=== PATIENT | male | born 1965 | race Caucasian/White ===

== ENCOUNTER → 2020-08-17 | Outpatient (CLI) | payer OTHER ==
[~2020-08-17] MED LIST: ADALAT CC30 MG PO; ADMELOG SO100 UNIT/1 SQ; ASPIRIN EC81 MG PO; ATORVASTATIN CA20 MG PO; BASAGLAR K100 UNIT/1 SQ; BRILINTA 90 MG90 MG PO; CLOPIDOGREL75 MG PO; COREG 12.5MG12.5 MG PO; HUMALOG100 UNIT/3 SQ; IMDUR ER TAB 6060 MG PO; LIORESAL TAB 1010 MG PO; LOPRESSOR 25 MG25 MG PO; LORTAB 7.5-3251 EACH PO; NITROSTAT0.4 MG SL; PLAVIX 75 MG TA75 MG PO; PRAVASTATIN SOD40 MG PO; PROTONIX20 MG PO; RANEXA1000 MG PO; SPIRIVA RESPIMAT4 GM INH; TRAMADOL HCL50 MG PO; TRICOR145 MG PO; VENTOLIN HFA 66.7 GM INH; ZOLOFT100 MG PO
== END ==
LOC: EXRD 14:30
DX: R63.4 Abnormal weight loss (principal)
CPT/HCPCS: 71046

== ENCOUNTER → 2020-09-21 | Outpatient (CLI) | payer OTHER | LOC: HEART 5 08:51 | DX: R63.4 Abnormal weight loss (principal); R94.2 Abnormal results of pulmonary function studies | CPT/HCPCS: 94060; 94729 ==

== ENCOUNTER 2021-04-12 17:49 | Emergency (ER) | payer OTHER | END 2021-04-12 20:59 | disposition left against medical advice (07) | LOC: ER1 17:49 | DX: Z53.21 Procedure and treatment not carried out due to patient leaving prior to being seen by health care provider (principal) | CPT/HCPCS: 93005 ==

== ENCOUNTER → 2021-10-09 | Outpatient (CLI) | payer OTHER | LOC: KOH-I 16:28 → CT 16:30 | DX: S09.90XS Unspecified injury of head, sequela (principal) | CPT/HCPCS: 70450 ==

== ENCOUNTER 2021-12-27 15:58 | Inpatient (IN) | payer OTHER ==
[~2021-12-27] VITALS: Ht 165.1 cm; Wt 63.2 kg
[~2021-12-27 15:58] MED LIST changes: +BACLOFEN5 MG PO; -LIORESAL TAB 1010 MG PO
[2021-12-27 16:30] LABS: HEMOGLOBIN 17.1 gm/dl (14.0-17.5); RED BLOOD COUNT 4.96 M/UL (4.20-5.50)
[2021-12-27 17:00] LABS: BUN/CREATININE RATIO 16 (0-10)
[2021-12-28 02:27] LABS: HEMOGLOBIN 15.2 gm/dl (14.0-17.5)
[2021-12-28 02:34] LABS: RED BLOOD COUNT 4.4 M/UL (4.20-5.50); WHITE BLOOD COUNT 15.2 K/UL (4.5-11.0)
[2021-12-28 04:01] LABS: BUN/CREATININE RATIO 26 (0-10)
[2021-12-28] MEDS ORDERED: VRAYLAR1.5 MG PO (10:54)
[2021-12-28] MEDS ORDERED: LANTUS SOL100 UNIT/1 SQ (10:54)
[2021-12-28] MEDS ORDERED: VITAMIN D350 MCG PO (10:54)
[2021-12-28] MEDS ORDERED: PRAZOSIN HCL2 MG PO (10:54)
[2021-12-28] MEDS ORDERED: VITAMIN D21250 MCG PO (10:54)
[2021-12-28] MEDS ORDERED: FLOMAX 0.4 MG0.4 MG PO (10:55)
[2021-12-28] MEDS ORDERED: HUMALOG100 UNIT/3 SQ (10:55)
[2021-12-28] MEDS ORDERED: ZOCOR20 MG PO (10:55)
--- NOTE | 2021-12-29 14:00 | NUR ---
STATES PT ALLOWED TO GO OFF FLOOR TO [facility]
--- NOTE | 2021-12-30 08:46 | NUR ---
PT RETURNED TO FLOOR FROM [facility], TECH STATES PT UNABLE TO COMPLETE TEST R/T CLAUSTROPHOBIA.
[2021-12-31] MEDS ORDERED: LIPITOR40 MG PO (10:43)
[2021-12-31] MEDS ORDERED: LOPRESSOR 25 MG25 MG PO (10:43)
[2021-12-31] MEDS ORDERED: LISINOPRIL5 MG PO (10:43)
[2021-12-31] MEDS ORDERED: ASPIRIN EC81 MG PO (10:54)
== END 2021-12-31 11:28 | disposition home or self-care (01) | DRG 304 ==
LOC: ER1 15:58 → PROG CARE 20:34 → CDU 20:34 → PROG CARE 22:55
PROVIDERS: Nurse Practitioner; ADMIT Internal Medicine
PROC: B24BZZZ Ultrasonography of Heart with Aorta (ICD-10-PCS; principal; 2021-12-28)
DX: I16.1 Hypertensive emergency (principal); I46.2 Cardiac arrest due to underlying cardiac condition; F11.20 Opioid dependence, uncomplicated; Z20.822 Contact with and (suspected) exposure to COVID-19; R55 Syncope and collapse; R07.9 Chest pain, unspecified; I16.0 Hypertensive urgency; E11.9 Type 2 diabetes mellitus without complications; I25.10 Atherosclerotic heart disease of native coronary artery without angina pectoris; F19.10 Other psychoactive substance abuse, uncomplicated; E78.5 Hyperlipidemia, unspecified; J44.9 Chronic obstructive pulmonary disease, unspecified; F12.10 Cannabis abuse, uncomplicated; M19.90 Unspecified osteoarthritis, unspecified site; I10 Essential (primary) hypertension; I08.3 Combined rheumatic disorders of mitral, aortic and tricuspid valves; G89.29 Other chronic pain; F32.A Depression, unspecified; F17.210 Nicotine dependence, cigarettes, uncomplicated; Z95.5 Presence of coronary angioplasty implant and graft; Z88.0 Allergy status to penicillin; Z82.49 Family history of ischemic heart disease and other diseases of the circulatory system; Z83.3 Family history of diabetes mellitus; Z90.49 Acquired absence of other specified parts of digestive tract
CPT/HCPCS: ECHO; 36415; 36600; 70450; 71045; 72125; 80053; 80061; 80307; 81001; 82140; 82550; 82553; 82803; 82962; 83036; 83605; 83735; 84439; 84443; 84484; 85025; 85379; 85610; 85730; 87040; 93005; 93270; 93306; 96372; 96374; 96375; 99285; C9113; G0480; J2270; J2405; J3475; Q9967

== ENCOUNTER 2022-02-01 15:35 | Inpatient (IN) | payer OTHER ==
[~2022-02-01] VITALS: Ht 162.6 cm; Wt 61.2 kg
[~2022-02-01 15:35] MED LIST changes: +FLOMAX 0.4 MG0.4 MG PO; +LANTUS SOL100 UNIT/1 SQ; +LIPITOR40 MG PO; +LISINOPRIL5 MG PO; +PRAZOSIN HCL2 MG PO; +VITAMIN D21250 MCG PO; +VITAMIN D350 MCG PO; +VRAYLAR1.5 MG PO; +ZOCOR20 MG PO
[2022-02-01 16:03] LABS: HEMOGLOBIN 16.8 gm/dl (14.0-17.5); RED BLOOD COUNT 5.03 M/UL (4.20-5.50); WHITE BLOOD COUNT 10.2 K/UL (4.5-11.0)
[2022-02-01 17:09] LABS: BUN/CREATININE RATIO 26 (0-10)
[2022-02-02 03:41] LABS: HEMOGLOBIN 15.6 gm/dl (14.0-17.5); RED BLOOD COUNT 4.59 M/UL (4.20-5.50)
[2022-02-02 03:44] LABS: WHITE BLOOD COUNT 15.5 K/UL (4.5-11.0)
[2022-02-02 04:06] LABS: BUN/CREATININE RATIO 29 (0-10)
[2022-02-03 02:58] LABS: HEMOGLOBIN 15.5 gm/dl (14.0-17.5); RED BLOOD COUNT 4.59 M/UL (4.20-5.50)
[2022-02-03 03:00] LABS: WHITE BLOOD COUNT 9.7 K/UL (4.5-11.0)
[2022-02-03 03:19] LABS: BUN/CREATININE RATIO 29 (0-10)
[2022-02-04 06:24] LABS: HEMOGLOBIN 14.5 gm/dl (14.0-17.5); RED BLOOD COUNT 4.36 M/UL (4.20-5.50); WHITE BLOOD COUNT 9.4 K/UL (4.5-11.0)
[2022-02-04 07:15] LABS: BUN/CREATININE RATIO 31 (0-10)
--- NOTE | 2022-02-04 09:57 | NUR ---
NURSE CALLED REPORTED THAT PT WILL BE TRANSFERED TO [place] [address] ENID FOSTER MD, SOMEONE WILL CALL ME WHEN BED READY.
--- NOTE | 2022-02-05 03:38 | NUR ---
APPROX. [id number]: ATTEMPTED TO CALL REPORT TO [facility], [address]. RN UNABLE TO TAKE REPORT AT THIS TIME. WILL CALL BACK. APPROX. [id number]: CALLED REPORT TO [facility], [address]LO[address], TO PERRY TRAVIS. APPROX. [id number]: FAXED EMS. CALLED EMS TO NOTIFY THEM OF NEED FOR PICKUP.
== END 2022-02-05 04:00 | disposition short-term general hospital (02) | DRG 287 ==
LOC: ER1 15:35 → MED SURG 4 17:31 → CDU 17:31 → MED SURG 4 21:06
PROVIDERS: Emergency Medicine; Physician Assistant; ADMIT Internal Medicine
PROC: 4A023N7 Measurement of Cardiac Sampling and Pressure, Left Heart, Percutaneous Approach (ICD-10-PCS; principal; 2022-02-04)
PROC: B2151ZZ Fluoroscopy of Left Heart using Low Osmolar Contrast (ICD-10-PCS; 2022-02-04)
PROC: B2111ZZ Fluoroscopy of Multiple Coronary Arteries using Low Osmolar Contrast (ICD-10-PCS; 2022-02-04)
DX: I25.10 Atherosclerotic heart disease of native coronary artery without angina pectoris (principal); I10 Essential (primary) hypertension; Z20.822 Contact with and (suspected) exposure to COVID-19; F12.10 Cannabis abuse, uncomplicated; E11.9 Type 2 diabetes mellitus without complications; J44.9 Chronic obstructive pulmonary disease, unspecified; I16.0 Hypertensive urgency; H91.93 Unspecified hearing loss, bilateral; E78.5 Hyperlipidemia, unspecified; F17.210 Nicotine dependence, cigarettes, uncomplicated; Z79.4 Long term (current) use of insulin; Z79.01 Long term (current) use of anticoagulants; Z79.82 Long term (current) use of aspirin; Z95.5 Presence of coronary angioplasty implant and graft; Z90.49 Acquired absence of other specified parts of digestive tract; Z98.890 Other specified postprocedural states; Z88.1 Allergy status to other antibiotic agents; Z88.0 Allergy status to penicillin; Z88.8 Allergy status to other drugs, medicaments and biological substances; Z82.49 Family history of ischemic heart disease and other diseases of the circulatory system; Z83.3 Family history of diabetes mellitus; Z80.9 Family history of malignant neoplasm, unspecified
CPT/HCPCS: 0240U; 36415; 71045; 80048; 80053; 81001; 82550; 82553; 82962; 83735; 84484; 85025; 93005; 96374; 99152; 99153; 99285; C1769; C1894; J1644; J2250; J2270; J2405; J3010; J7040; Q9967

== ENCOUNTER 2022-03-19 05:08 | Observation (INO) | payer OTHER ==
[~2022-03-19] VITALS: Ht 165.1 cm; Wt 61.2 kg
[2022-03-19 05:33] LABS: HEMOGLOBIN 14.4 gm/dl (14.0-17.5); RED BLOOD COUNT 4.37 M/UL (4.20-5.50); WHITE BLOOD COUNT 10.2 K/UL (4.5-11.0)
[2022-03-19 05:55] LABS: BUN/CREATININE RATIO 25 (0-10)
[2022-03-19] MEDS ORDERED: ATORVASTATIN CA40 MG PO (14:07)
[2022-03-19] MEDS ORDERED: CLOPIDOGREL75 MG PO (14:08)
[2022-03-19] MEDS ORDERED: INDOMETHACIN25 MG PO (14:09)
[2022-03-19] MEDS ORDERED: ISOSORBIDE MONO30 MG PO (14:09)
[2022-03-19] MEDS ORDERED: LISINOPRIL10 MG PO (14:10)
[2022-03-19] MEDS ORDERED: METOPROLOL TART25 MG PO (14:11)
[2022-03-19] MEDS ORDERED: ASPIRIN EC81 MG PO (14:13)
[2022-03-20 03:45] LABS: HEMOGLOBIN 13.6 gm/dl (14.0-17.5); RED BLOOD COUNT 4.16 M/UL (4.20-5.50)
[2022-03-20 04:01] LABS: BUN/CREATININE RATIO 38 (0-10)
[2022-03-20 04:09] LABS: WHITE BLOOD COUNT 17.9 K/UL (4.5-11.0)
[2022-03-21 02:47] LABS: HEMOGLOBIN 13.1 gm/dl (14.0-17.5); RED BLOOD COUNT 4.02 M/UL (4.20-5.50)
[2022-03-21 02:51] LABS: WHITE BLOOD COUNT 9.9 K/UL (4.5-11.0)
[2022-03-21 04:24] LABS: BUN/CREATININE RATIO 44 (0-10)
[2022-03-21] MEDS ORDERED: AMLODIPINE BESYL5 MG PO (09:17)
[2022-03-21] MEDS ORDERED: ISOSORBIDE MONO60 MG PO (09:17)
[2022-03-21] MEDS ORDERED: LISINOPRIL10 MG PO (09:41)
== END 2022-03-21 13:24 | disposition home or self-care (01) ==
LOC: ER1 05:08 → CDU 12:21 → M/S 12:21
PROVIDERS: Physician Assistant; ADMIT Internal Medicine Infectious Disease
DX: R07.89 Other chest pain (principal); I16.0 Hypertensive urgency; I25.10 Atherosclerotic heart disease of native coronary artery without angina pectoris; Z95.1 Presence of aortocoronary bypass graft; Z95.5 Presence of coronary angioplasty implant and graft; E11.65 Type 2 diabetes mellitus with hyperglycemia; E78.5 Hyperlipidemia, unspecified; J44.9 Chronic obstructive pulmonary disease, unspecified; D72.829 Elevated white blood cell count, unspecified; H91.90 Unspecified hearing loss, unspecified ear; F17.210 Nicotine dependence, cigarettes, uncomplicated; Z79.82 Long term (current) use of aspirin; Z79.4 Long term (current) use of insulin; Z79.899 Other long term (current) drug therapy; Z88.0 Allergy status to penicillin; Z88.5 Allergy status to narcotic agent; Z88.8 Allergy status to other drugs, medicaments and biological substances; Z82.49 Family history of ischemic heart disease and other diseases of the circulatory system
CPT/HCPCS: ECHO; 36415; 71045; 80048; 80053; 80061; 82550; 82553; 82962; 83880; 84484; 85025; 85610; 85730; 86140; 93005; 93306; 96374; 96376; 99285; G0378; J0360; J1885; J2270